=== PATIENT | male | born 1965 | race Caucasian/White ===

== ENCOUNTER 2019-02-23 11:00 | Emergency (ER) | payer MEDICAID ==
[~2019-02-23] VITALS: Ht 180.3 cm; Wt 74.7 kg
[2019-02-23 12:28] VITALS: BP 126/74
== END 2019-02-23 12:31 | disposition home or self-care (01) ==
LOC: ED 12:11
DX: R06.00 Dyspnea, unspecified (principal); E11.9 Type 2 diabetes mellitus without complications
CPT/HCPCS: 71046; 93005; 99283